=== PATIENT | female | born 1985 | race Caucasian/White ===

== ENCOUNTER 2017-02-22 20:39 | Emergency (ER) | payer MEDICAID ==
[2017-01-18 18:10] VITALS: Ht 160 cm; Wt 80.7 kg
[~2017-02-22] VITALS: Ht 160 cm; Wt 80.7 kg
[~2017-02-22 20:39] MED LIST: CALC-521 PO; HYDR-4309 PO; IBUP800T37 PO; LOR5/325 PO; ONDA4TAB PO; PREN-127 PO
--- NOTE | 2017-02-22 20:40 | ER Report ---
History and Physical Time Seen By MD: 20:39 HPI/ROS CHIEF COMPLAINT: Vomiting, abdominal pain HISTORY OF PRESENT ILLNESS: 31-year-old female presents ambulatory to the ER with vomiting and epigastric pain for 4 hours. Patient notes severe 9/10 pain doubling her over. Patient's bent over holding her epigastrium. Patient notes onset after eating a greasy hamburger that may have been undercooked Patient reports she's had several episodes similar to this in the past. Patient notes no diarrhea. Patient notes no fever or chills. Patient notes sharp pain without radiation. Patient denies previous abdominal surgeries. Patient is 1 month from a vaginal delivery REVIEW OF SYSTEMS: Respiratory: No cough, no dyspnea. Cardiovascular: No chest pain, no palpitations. Gastrointestinal: As above Musculoskeletal: No back pain. Allergies: Coded Allergies: adhesive tape (Verified Allergy, Mild, RASH, 01/19/17) Patient states she has had skin irritation from bandaides soap (Verified Allergy, Mild, RASH, 01/19/17) Patient statesshe gets rashes from most soaps and antibacterial wipes Home Meds Active Scripts Oxycodone Hcl/Acetaminophen (PERCOCET 5-325 MG TABLET) 1 Each Tablet, 1 EACH PO Q4-6H Y for pain, #10 Prov:DESHAWN CORONADO DO 02/22/17 Promethazine Hcl (PROMETHAZINE HCL) 25 Mg Tablet, 25 MG PO Q6H Y for NAUSEA/ VOMITING, #14 TAB Prov:DESHAWN CORONADO DO 02/22/17 Hydrocodone Bit/Acetaminophen (HYDROCODON-ACETAMINOPHEN 5-325) 1 Each Tablet, 1 EACH PO Q4-6H Y for pain, #20 TAB 0 Refills Prov:JANET GANDHI MD 01/19/17 Ibuprofen (IBUPROFEN) 800 Mg Tablet, 1 TAB PO Q8H Y for pain, #40 TAB 0 Refills TAKE WITH FOOD EVERY 8 HOURS Prov:JANET GANDHI MD 01/19/17 Reported Medications Calcium Carbonate (TUMS) 300 Mg Tab.chew, 300 MG PO PRN Y for HEARTBURN, TAB.CHEW 01/18/17 Vits W-Ca,Fe,Fa(<1MG) ( VITAMINS) 1 Each Tablet, 1 EACH PO DAILY, TAB 01/18/17 Reviewed Nurses Notes: Yes Old Medical Records Reviewed: Yes Hx Smoking: Yes Smoking Status: Former Smoker Exposure to Second Hand Smoke?: Yes Constitutional Vital Sign - Last 24 Hours 02/22/17 02/22/17 02/22/17 02/22/17 20:47 21:09 21:20 21:24 Temp 98.7 Pulse 107 89 70 Resp 18 B/P (MAP) 114/96 Pulse Ox 97 95 100 O2 Delivery Room Air O2 Flow Rate 1.0 02/22/17 02/22/17 02/22/17 02/22/17 21:29 21:44 21:59 22:11 Pulse 74 68 68 B/P (MAP) 95/56 (69) Pulse Ox 99 100 100 Physical Exam General Appearance: The patient is alert, has no immediate need for airway protection and no current signs of toxicity.. Moderate distress, slightly pale appearing, skin warm and dry, vital signs stable, afebrile HEENT: Pupils equal and round no injection. Oropharynx without redness or exudate, mucous membranes are moist Respiratory: Chest is non tender, lungs are clear to auscultation. Cardiac: regular rate and rhythm Gastrointestinal: Abdomen is soft moderate epigastric tenderness, no rebound or guarding, no masses, bowel sounds normal. Musculoskeletal: Neck: Neck is supple and non tender. Extremities have full range of motion and are non tender. Skin: No rashes or lesions. DIFFERENTIAL DIAGNOSIS: After history and physical exam differential diagnosis was considered for abdominal pain including but not limited to appendicitis, cholecystitis, gastritis, pancreatitis, food poisoning, gastroenteritis, viral syndrome and urinary tract infection. Medical Decision Making Data Points Result Diagram: 02/22/17204902/22/172049 Laboratory Hematology Test 02/22/17 20:46 02/22/17 20:50 Urine Color Yellow Urine Clarity Clear Urine pH 5.0 pH (4.8-9.5) Urine Specific [place] 1.013 Urine Protein Negative mg/dL (NEGATIVE) Urine Glucose (UA) Negative mg/dL (NEGATIVE) Urine Ketones Negative mg/dL (NEGATIVE) Urine Blood Negative (NEGATIVE) Urine Nitrite Negative (NEGATIVE) Urine Bilirubin Negative (NEGATIVE) Urine Urobilinogen Negative mg/dL (0.2-1.9) Urine Leukocyte Esterase Trace (NEGATIVE) Urine RBC <1 /HPF (0-2/HPF) Urine WBC 5 /HPF (0-5/HPF) Urine Squamous Epithelial Cells Many /LPF (</=FEW) Urine Bacteria Few /HPF (NONE-FEW) Urine Mucus None /HPF (NONE-FEW) Red Blood Count 5.22 M/uL (4.17-5.56) Mean Corpuscular Volume 88.8 fL (80.0-96.0) Mean Corpuscular Hemoglobin 30.2 pg (26.0-33.0) Mean Corpuscular Hemoglobin Concent 34.1 g/dL (32.0-36.0) Red Cell Distribution Width 12.5 % (11.5-14.5) Mean Platelet Volume 7.4 fL (7.2-11.1) Neutrophils (%) (Auto) 55.5 % (39.4-72.5) Lymphocytes (%) (Auto) 33.0 % (17.6-49.6) Monocytes (%) (Auto) 7.0 % (4.1-12.4) Eosinophils (%) (Auto) 3.7 % (0.4-6.7) Basophils (%) (Auto) 0.8 % (0.3-1.4) Nucleated RBC Relative Count (auto) 0.0 /100WBC Neutrophils # (Auto) 5.5 K/uL (2.0-7.4) Lymphocytes # (Auto) 3.2 K/uL (1.3-3.6) Monocytes # (Auto) 0.7 K/uL (0.3-1.0) Eosinophils # (Auto) 0.4 K/uL (0.0-0.5) Basophils # (Auto) 0.1 K/uL (0.0-0.1) Nucleated RBC Absolute Count (auto) 0.00 K/uL Sodium Level 138 mmol/L (137-145) Potassium Level 4.0 mmol/L (3.5-5.0) Chloride Level 102 mmol/L (98-107) Carbon Dioxide Level 22 mmol/L (22-31) Blood Urea Nitrogen 12 mg/dl (7-18) Creatinine 0.70 mg/dl (0.52-1.04) Glomerular Filtration Rate Calc > 60.0 Random Glucose 106 mg/dl (75-110) Calcium Level 9.4 mg/dl (8.4-10.2) Total Bilirubin 0.4 mg/dl (0.2-1.3) Aspartate Amino Transf (AST/SGOT) 31 U/L (0-35) Alanine Aminotransferase (ALT/SGPT) 30 U/L (0-56) Alkaline Phosphatase 99 U/L (0-126) Total Protein 7.9 gm/dl (6.3-8.2) Albumin 4.3 g/dl (3.5-5.0) Amylase Level 82 U/L (0-110) Lipase 198 U/L (23-300) Human Chorionic Gonadotropin, Qual Negative (NEGATIVE) Chemistry Test 02/22/17 20:46 02/22/17 20:50 Urine Color Yellow Urine Clarity Clear Urine pH 5.0 pH (4.8-9.5) Urine Specific [place] 1.013 Urine Protein Negative mg/dL (NEGATIVE) Urine Glucose (UA) Negative mg/dL (NEGATIVE) Urine Ketones Negative mg/dL (NEGATIVE) Urine Blood Negative (NEGATIVE) Urine Nitrite Negative (NEGATIVE) Urine Bilirubin Negative (NEGATIVE) Urine Urobilinogen Negative mg/dL (0.2-1.9) Urine Leukocyte Esterase Trace (NEGATIVE) Urine RBC <1 /HPF (0-2/HPF) Urine WBC 5 /HPF (0-5/HPF) Urine Squamous Epithelial Cells Many /LPF (</=FEW) Urine Bacteria Few /HPF (NONE-FEW) Urine Mucus None /HPF (NONE-FEW) White Blood Count 9.8 k/uL (4.5-11.0) Red Blood Count 5.22 M/uL (4.17-5.56) Hemoglobin 15.8 g/dL (12.0-16.0) Hematocrit 46.3 % (34.0-47.0) Mean Corpuscular Volume 88.8 fL (80.0-96.0) Mean Corpuscular Hemoglobin 30.2 pg (26.0-33.0) Mean Corpuscular Hemoglobin Concent 34.1 g/dL (32.0-36.0) Red Cell Distribution Width 12.5 % (11.5-14.5) Platelet Count 240 K/uL (150-450) Mean Platelet Volume 7.4 fL (7.2-11.1) Neutrophils (%) (Auto) 55.5 % (39.4-72.5) Lymphocytes (%) (Auto) 33.0 % (17.6-49.6) Monocytes (%) (Auto) 7.0 % (4.1-12.4) Eosinophils (%) (Auto) 3.7 % (0.4-6.7) Basophils (%) (Auto) 0.8 % (0.3-1.4) Nucleated RBC Relative Count (auto) 0.0 /100WBC Neutrophils # (Auto) 5.5 K/uL (2.0-7.4) Lymphocytes # (Auto) 3.2 K/uL (1.3-3.6) Monocytes # (Auto) 0.7 K/uL (0.3-1.0) Eosinophils # (Auto) 0.4 K/uL (0.0-0.5) Basophils # (Auto) 0.1 K/uL (0.0-0.1) Nucleated RBC Absolute Count (auto) 0.00 K/uL Glomerular Filtration Rate Calc > 60.0 Calcium Level 9.4 mg/dl (8.4-10.2) Total Bilirubin 0.4 mg/dl (0.2-1.3) Aspartate Amino Transf (AST/SGOT) 31 U/L (0-35) Alanine Aminotransferase (ALT/SGPT) 30 U/L (0-56) Alkaline Phosphatase 99 U/L (0-126) Total Protein 7.9 gm/dl (6.3-8.2) Albumin 4.3 g/dl (3.5-5.0) Amylase Level 82 U/L (0-110) Lipase 198 U/L (23-300) Human Chorionic Gonadotropin, Qual Negative (NEGATIVE) Urinalysis Test 02/22/17 20:46 Urine Color Yellow Urine Clarity Clear Urine pH 5.0 pH (4.8-9.5) Urine Specific [place] 1.013 Urine Protein Negative mg/dL (NEGATIVE) Urine Glucose (UA) Negative mg/dL (NEGATIVE) Urine Ketones Negative mg/dL (NEGATIVE) Urine Blood Negative (NEGATIVE) Urine Nitrite Negative (NEGATIVE) Urine Bilirubin Negative (NEGATIVE) Urine Urobilinogen Negative mg/dL (0.2-1.9) Urine Leukocyte Esterase Trace (NEGATIVE) Urine RBC <1 /HPF (0-2/HPF) Urine WBC 5 /HPF (0-5/HPF) Urine Squamous Epithelial Cells Many /LPF (</=FEW) Urine Bacteria Few /HPF (NONE-FEW) Urine Mucus None /HPF (NONE-FEW) ED Course/Re-evaluation Clinical Indication for ER IV: Hydration, IV Access ED Course Patient was admitted to an examination room. H&P was done. The differential diagnoses was considered. On clinical examination. Patient has moderate epigastric tenderness. She ate some greasy food prior to the onset. Patient's treated with IV fluid hydration. Her laboratory studies are unremarkable. There is no evidence to suggest acute cholecystitis. Patient's pain was primarily in the epigastrium radiating into her chest. Patient advised to follow-up with primary care for further evaluation. She was given information to follow up with internal medicine clinic as well as Dr. Wong a GI specialist. She was given a limited supply of Percocet and Zofran for temporary symptomatically relief. She is advised a clear liquid diet for 24-48 hours. Then advance through a bland diet of bananas, rice, applesauce, toast. Decision to Disposition Date: Feb 22, 2017 Decision to Disposition Time: 21:49 Depart Departure Latest Vital Signs Vital Signs Date Time Temp Pulse Resp B/P (MAP) Pulse Ox O2 Delivery O2 Flow Rate FiO2 02/22/17 22:11 95/56 (69) 02/22/17 21:59 68 100 02/22/17 21:20 1.0 02/22/17 20:47 98.7 18 Room Air Impression: Primary Impression: Abdominal pain Additional Impressions: Vomiting state Condition: Improved Disposition: HOME OR SELF-CARE New Scripts Oxycodone Hcl/Acetaminophen (PERCOCET 5-325 MG TABLET) 1 Each Tablet 1 EACH PO Q4-6H Y for pain, #10 Prov: DESHAWN CORONADO DO 02/22/17 Promethazine Hcl (PROMETHAZINE HCL) 25 Mg Tablet 25 MG PO Q6H Y for NAUSEA/VOMITING, #14 TAB Prov: DESHAWN CORONADO DO 02/22/17 Patient Instructions: Abdominal Pain (ED), Clear Liquid Diet (ED) Additional Instructions: Follow clear liquid diet for 24 hours, then advance to the brat diet, bananas, rice, applesauce and toast over the next 24 hours You might have gallstones and may need an ultrasound to investigate the Follow-up with your primary care physician if unimproved in 2-3 days Problem Qualifiers Primary Impression: Abdominal pain Abdominal location: right upper quadrant Qualified Codes: R10.11 - Right upper quadrant pain Additional Impressions: Vomiting Vomiting type: unspecified Vomiting Intractability: non-intractable Nausea presence: with nausea Qualified Codes: R11.2 - Nausea with vomiting, unspecified DESHAWN CORONADO DO Feb 22, 2017 20:40
[2017-02-22] MEDS ORDERED: fentaNYL CITR 100 MCG/2 ML AMP IVP ONE (20:55)
[2017-02-22] MEDS ORDERED: ONDANSETRON 4 MG/2 ML VIAL IVP ONE (20:55)
[2017-02-22] MEDS ORDERED: PROMETHAZINE 25 MG/ML 1 ML AMP IVP ONE (20:55)
[2017-02-22] MEDS ORDERED: NS(*) 0.9% 1000 ML BAG 1,000 ML IV ONE (20:55)
[2017-02-22 21:12] LABS: PLATELET COUNT, AUTOMATED 240 K/uL (150-450)
[2017-02-22] MEDS ORDERED: OXYC-865 PO (21:53)
[2017-02-22] MEDS ORDERED: PROM-110 PO (21:53)
[2017-02-22] MEDS ORDERED: oxyCODONE/ACETAMIN 5/325MG TH 2 TAB/BOTTLE PO ONE (22:00)
[2017-02-22] MEDS ORDERED: PROMETHAZINE HCL 25 MG TAB TH 2 TAB/BOTTLE PO ONE (22:00)
[2017-02-22 22:11] VITALS: BP 95/56
== END 2017-02-22 22:28 | disposition home or self-care (01) ==
LOC: ER 20:42
DX: R10.11 Right upper quadrant pain (principal); R11.2 Nausea with vomiting, unspecified
CPT/HCPCS: 81001; 82150; 83690; 84703; 85025; 96361; 96374; 96375; 99283; J2405; J2550; J3010; J7030; 82040; 82247; 82310; 82374; 82435; 82565; 82947; 84075; 84132; 84155; 84295; 84450; 84460; 84520